=== PATIENT | female | born 1985 | race Caucasian/White ===

== ENCOUNTER 2017-05-10 11:50 | Emergency (ER) | payer MEDICAID ==
[2017-05-10] MEDS ORDERED: Ondansetron 4 MG/2 ML SDV IVPUSH ONE (12:24)
[2017-05-10] MEDS ORDERED: HYDROmorphone 1 MG/ML Syringe IV ONE ×2 (12:24→14:44)
[2017-05-10] MEDS ORDERED: Sodium Chloride 0.9% 1,000 ML IV ONE (12:24)
[2017-05-10] MEDS ORDERED: Ketorolac 30 MG/ML SDV IVPUSH ONE (12:24)
[2017-05-10] MEDS ORDERED: Tamsulosin 0.4 MG Cap.ER PO ONE (12:25)
--- NOTE | 2017-05-10 12:43 | EDM.PDOC ---
ED HPI GENERAL MEDICAL PROBLEM - General Chief Complaint: Flank Pain Stated Complaint: BACK PAIN Time Seen by Provider: 05/10/17 12:20 Source of Information: Reports: Patient History Limitations: Reports: No Limitations - History of Present Illness INITIAL COMMENTS - FREE TEXT/NARRATIVE: HISTORY AND PHYSICAL: History of present illness: [Comes to emergency room complaining of left flank pain. Patient was grocery shopping when the pain began suddenly in her left flank. Onset was 3 hours prior to arrival in the ER. Has not taken any medications for her symptoms. [place] well this morning and had no complaints or concerns. Has not noticed blood in her urine but has not urinated since the onset of pain. Pain radiates from her L low back around into her left lower quadrant. She has had no fever or chills and has otherwise been feeling well. Denies fever or chills. No chest pain, shortness of breath or difficulty breathing. Complains of nausea, but has not had any vomiting. Has had no constipation or diarrhea. No muscle or joint aches or pains.] Review of systems: As per history of present illness and below otherwise all systems reviewed and negative. Past medical history: As per history of present illness and as reviewed below otherwise noncontributory. Surgical history: As per history of present illness and as reviewed below otherwise noncontributory. Social history: No reported history of drug or alcohol abuse. Family history: As per history of present illness and as reviewed below otherwise noncontributory. Physical exam: HEENT: Atraumatic, normocephalic. Lungs: Clear to auscultation, breath sounds equal bilaterally. Heart: S1S2, regular rate and rhythm. Abdomen: Bowel sounds are normoactive throughout. Abdomen is soft and nondistended. No masses guarding or rebound. She is tender with palpation over the left lower quadrant and suprapubic area. Left CVA tenderness with percussion. Pelvis: Stable nontender. Genitourinary: Deferred. Rectal: Deferred. Extremities: Atraumatic, negative for cords or calf pain. No swelling or cyanosis to feet or lower legs. Neurovascular unremarkable. Neuro: Awake, alert, oriented. Cranial nerves II through XII unremarkable. Cerebellum unremarkable. Motor and sensory unremarkable throughout. Exam nonfocal. Diagnostics: [UA with micro, CT abdomen and pelvis without contrast] Therapeutics: [1 L normal saline, Flomax 0.4 mg by mouth, Dilaudid 1 mg IV x2, Toradol 30 mg IV, Zofran 4 mg IV] Impression: [Kidney stone] Plan: [CT abd/pelvis shows 4 mm obstructing stone to distal L ureter. Rx written for ketorolac 10 mg #20 sig one by mouth every 4-6 hours as needed for pain here refills, Zofran 4 mg #20 sig one by mouth every 8 hours as needed for nausea 0 refills, Flomax 0.4 mg #10 sig one by mouth daily 0 refills, hydrocodone 5/325 mg #30 sig 1 by mouth every 4-6 hours as needed for pain 0 refills. Recommend follow-up with urology early next week. Referrals given. She is in agreement with today's plan. All of her questions are answered and concerns are addressed. ] Definitive disposition and diagnosis as appropriate pending reevaluation and review of above. Left Flank Pain Score (Numeric/FACES): 7 - Related Data Allergies Allergy/AdvReac Type Severity Reaction Status Date / Time morphine Allergy Other Verified 12/17/15 13:33 Home Meds: Home Meds Ondansetron [Zofran ODT] 4 mg PO Q4H PRN #10 tab.dis 12/17/15 [Rx] oxyCODONE HCl/Acetaminophen [Percocet 5-325 mg Tablet] 1 each PO Q4HR PRN #20 tablet 12/17/15 [Rx] Cyclobenzaprine [Flexeril] 10 mg PO TID 05/10/17 [History] Past Medical History Gastrointestinal History: Reports: Other (See Below) Other Gastrointestinal History: Dysfunction of sphinter of RETA; Gastroparesis Genitourinary History: Reports: Renal Calculus 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: 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 Other OB/BYN History: laporoscopies - Past Surgical History GI Surgical History: Reports: Other (See Below) Social & Family History - Tobacco Use Smoking Status *Q: Current Every Day Smoker Years of Tobacco use: 10 Packs/Tins Daily: 0.5 Used Tobacco, but Quit: No Second Hand Smoke Exposure: Yes - Caffeine Use Caffeine Use: Reports: Coffee, Tea - Alcohol Use Days Per Week of Alcohol Use: 0 - Recreational Drug Use Recreational Drug Use: No Drug Use in Last 12 Months: Yes Recreational Drug Type: Reports: Marijuana/Hashish Recreational Drug Use Frequency: Daily ED ROS GENERAL - Review of Systems Review Of Systems: ROS reveals no pertinent complaints other than HPI. ED EXAM, RENAL/ - Physical Exam Exam: See Below Course - Vital Signs Last Recorded V/S: Last Vital Signs Temp 97.0 F 05/10/17 16:46 Pulse 70 05/10/17 16:46 Resp 16 05/10/17 16:46 BP 111/69 05/10/17 16:46 Pulse Ox 97 05/10/17 16:46 - Orders/Labs/Meds Labs: Laboratory Tests 05/10/17 05/10/17 Range/Units 14:05 14:05 Urine Color YELLOW Urine Appearance SLT CLOUDY Urine pH 5.5 (5.0-8.0) Ur Specific [place] 1.020 (1.001-1.035) Urine Protein 30 (NEGATIVE) mg/dL Urine Glucose (UA) NEGATIVE (NEGATIVE) mg/dL Urine Ketones 15 H (NEGATIVE) mg/dL Urine Occult Blood LARGE H (NEGATIVE) Urine Nitrite NEGATIVE (NEGATIVE) Urine Bilirubin SMALL H (NEGATIVE) Urine Ictotest NEGATIVE Urine Urobilinogen 0.2 (<2.0) EU/dL Ur Leukocyte Esterase LARGE (NEGATIVE) Urine RBC 75-89 (0-2/HPF) Urine WBC 4-6 (0-5/HPF) Ur Epithelial Cells MODERATE (NONE-FEW) Urine Bacteria 1+ H (NEGATIVE) Urine Mucus LIGHT (NONE-MOD) Urine HCG, Qual NEGATIVE (NEGATIVE) Meds: Medications Discontinued Medications Generic Name Dose Route Start Last Admin Trade Name Freq PRN Reason Stop Dose Admin Hydromorphone HCl 1 mg 05/10/17 12:24 05/10/17 12:56 Dilaudid IV 05/10/17 12:25 1 mg ONETIME ONE Administration Hydromorphone HCl 1 mg 05/10/17 14:44 05/10/17 14:45 Dilaudid IV 05/10/17 14:45 1 mg ONETIME ONE Administration Sodium Chloride 1,000 mls @ 999 mls/hr 05/10/17 12:24 05/10/17 12:48 Normal Saline IV 05/10/17 13:24 999 mls/hr STAT ONE Administration Ketorolac Tromethamine 30 mg 05/10/17 12:24 09/15/17 12:50 Toradol IVPUSH 05/10/17 12:25 30 mg ONETIME ONE Administration Ondansetron HCl 4 mg 05/10/17 12:24 05/10/17 12:48 Zofran IVPUSH 05/10/17 12:25 4 mg ONETIME ONE Administration Tamsulosin HCl 0.4 mg 05/10/17 12:25 05/10/17 12:58 Flomax PO 05/10/17 12:26 0.4 mg ONETIME ONE Administration Departure - Departure Time of Disposition: 16:30 Disposition: Home, Self-Care 01 Condition: Good Clinical Impression: Kidney stone on left side - Discharge Information Instructions: Kidney Stones, [id number] Referrals: Kodak Guzmán MD [Primary Care Provider] - Forms: ED Department Discharge Additional Instructions: The following information is given to patients seen in the emergency department who are being discharged to home. This information is to outline your options for follow-up care. We provide all patients seen in our emergency department with a follow-up referral. The need for follow-up, as well as the timing and circumstances, are variable depending upon the specifics of your emergency department visit. If you don't have a primary care physician on staff, we will provide you with a referral. We always advise you to contact your personal physician following an emergency department visit to inform them of the circumstance of the visit and for follow-up with them and/or the need for any referrals to a consulting specialist. The emergency department will also refer you to a specialist when appropriate. This referral assures that you have the opportunity for follow-up care with a specialist. All of these measure are taken in an effort to provide you with optimal care, which includes your follow-up. Under all circumstances we always encourage you to contact your private physician who remains a resource for coordinating your care. When calling for follow-up care, please make the office aware that this follow-up is from your recent emergency room visit. If for any reason you are refused follow-up, please contact the [facility] emergency department at and asked to speak to the emergency department charge nurse. [facility] - Urology [address] [place] [id number] Follow-up at the clinic listed above early next week. Take Flomax daily, Toradol every 6 hours, hydrocodone as needed for pain, Zofran as needed for pain. Take medications as prescribed. Return to ER as needed as discussed.
--- NOTE | 2017-05-10 16:15 | CT ---
CT of the abdomen and pelvis without contrast. HISTORY: Left flank pain TECHNIQUE: Axial CT images were obtained of the abdomen and pelvis without contrast. Coronal and sagi ttal reconstructions obtained. FINDINGS: The lung bases are clear, no pleural effusion. There is fatty infiltration of the liver with increased focal fatty infiltration near the falciform l igament. The spleen, adrenal glands, and pancreas appear unremarkable for noncontrast examination. Ch olecystectomy. There is no bulky retroperitoneal lymphadenopathy. No abdominal ascites. Tiny nonobstructing nephrolithiasis bilaterally. There is a 4 mm obstructing stone within the distal left ureter near the ureterovesicular junction with moderate proximal hydronephrosis. The large and small bowel are normal in caliber without evidence of obstruction. The appendix appears normal. There is no bulky pelvic lymphadenopathy. No free fluid. No free air. The urinary bladder ap pears normal. The visualized osseous structures appear normal. IMPRESSION: 1. There is a 4 mm obstructing stone within the distal left ureter with proximal hydronephrosis. 2. Punctate nonobstructing nephrolithiasis bilaterally. 3. Cholecystectomy. 4. Moderate fatty infiltration of the liver.
[2017-05-10 16:48] VITALS: BP 111/69
== END 2017-05-10 16:56 | disposition home or self-care (01) ==
LOC: MW.ED 11:50
DX: N13.2 Hydronephrosis with renal and ureteral calculous obstruction (principal); F17.210 Nicotine dependence, cigarettes, uncomplicated; Z88.5 Allergy status to narcotic agent
CPT/HCPCS: 74176; 81001; 81025; 96361; 96374; 96375; 99284; A9270; J1170; J1885; J2405; J7040; 99283

== ENCOUNTER 2020-03-31 07:54 | Day surgery (SDC) | payer BC, MEDICAID ==
[~2020-03-31 07:54] MED LIST: Bupivacaine 0.5% 30 ML SDV ONE; Dexamethasone 4 MG/ML 5 ML MDV ONE; Lidocaine 2% Jelly 30 ML Tube ONE; Midazolam 1 MG/ML 2 ML SDV ONE; Ondansetron 4 MG/2 ML SDV ONE; Propofol 200 MG/20 ML SDV ONE; Sodium Chloride 0.9% 10 ML SDV IV PRN; Sodium Chloride 0.9% 10 ML Syringe FLUSH PRN; Sodium Chloride 0.9% 2.5 ML Syringe FLUSH PRN; Sodium Chloride 0.9% 20 ML ONE; cefOXitin 1 GM Vial ONE; cefOXitin 2 GM in Premix Bag 1 BAG IV ONE; fentaNYL 100 MCG/2 ML SDV ONE
[2020-03-31] MEDS: Lactated Ringers 1,000 ML IV SCH ×2 (08:15→10:43)
[2020-03-31] MEDS ORDERED: Propofol 200 MG/20 ML SDV ONE ×2 (08:23→09:54)
--- NOTE | 2020-03-31 08:27 | PCM.PREANE ---
Preanesthetic Assessment - Anesthesia/Transfusion/Family Hx Anesthesia History: Prior Anesthesia Without Reaction Other Type of Anesthesia Reaction Comment: "wakes up angry" Family History of Anesthesia Reaction: No Transfusion History: No Prior Transfusion(s) - Review of Systems General: No Symptoms Cardiovascular: No Symptoms Neurological: No Symptoms Other: Reports: None - Physical Assessment NPO Status Date: 03/30/20 Vital Signs: Last Vital Signs Temp 96.8 F L 03/31/20 08:10 Pulse 94 03/31/20 08:10 Resp 16 03/31/20 08:10 BP 116/79 03/31/20 08:10 Pulse Ox 99 03/31/20 08:10 Height: 5 ft 8 in Weight: 103.873 kg ASA Class: 2 Mental Status: Alert & Oriented x3 Airway Class: Mallampati = 2 Dentition: Reports: Normal Dentition ROM/Head Extension: Full Lungs: Clear to Auscultation, Normal Respiratory Effort Cardiovascular: Regular Rate, Regular Rhythm - Allergies Allergies/Adverse Reactions: Allergies Allergy/AdvReac Type Severity Reaction Status Date / Time morphine Allergy Other Verified 12/17/15 13:33 - Blood Blood Available: No - Anesthesia Plan Pre-Op Medication Ordered: None - Acknowledgements Pt an Appropriate Candidate for the Planned Anesthesia: Yes Alternatives and Risks of Anesthesia Discussed w Pt/Guardian: Yes Pt/Guardian Understands and Agrees with Anesthesia Plan: Yes Additional Comments: PMH: fibromyalgia, IBS, gastroparesis, smoker, dailycannabis use- may cause propofol resistance. 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: Other OB/BYN History: laporoscopies Musculoskeletal History: Reports: Fibromyalgia Neurological History: Reports: Migraines Psychiatric History: Reports: Anxiety, Depression Endocrine/Metabolic History: Reports: Obesity/BMI 30+ Hematologic History: Reports: None Immunologic History: Reports: None Oncologic (Cancer) History: Reports: None Dermatologic History: Reports: None - Past Surgical History Head Surgeries/Procedures: Reports: None HEENT Surgical History: Reports: Adenoidectomy, Myringotomy w Tube(s), Tonsillectomy Cardiovascular Surgical History: Reports: None Respiratory Surgical History: Reports: None GI Surgical History: Reports: Cholecystectomy, Colonoscopy, Other (See Below) Other GI Surgeries/Procedures: ERCP, sphincter of Oddi dysfunction Female Surgical History: Reports: Hysterectomy, Lithotripsy/ESWL, Salpingo-Oophorectomy Endocrine Surgical History: Reports: None Neurological Surgical History: Reports: None Musculoskeletal Surgical History: Reports: None Oncologic Surgical History: Reports: None Dermatological Surgical History: Reports: None - SUBSTANCE USE Smoking Status *Q: Current Every Day Smoker Tobacco Use Within Last Twelve Months: Cigarettes Recreational Drug Type: Reports: Marijuana/Hashish - HOME MEDS Home Medications: Home Meds Ondansetron [Zofran ODT] 4 mg PO Q4H PRN #10 tab.dis 12/17/15 [Rx] Cyclobenzaprine [Flexeril] 10 mg PO TID PRN 05/10/17 [History] Calcium Carbonate [Tums] 1 tab.chew CHEW ASDIRECTED PRN 03/25/20 [History] Diclofenac Sodium [Voltaren 1% Gel] 1 applic TOP ASDIRECTED PRN 03/25/20 [History] Promethazine HCl 25 mg PO Q4H PRN 03/25/20 [History] buPROPion HCL [Wellbutrin Xl] 300 mg PO DAILY 03/25/20 [History] - CURRENT (IN HOUSE) MEDS Current Meds: Current Medications Fentanyl (Sublimaze) 50 mcg IVPUSH Q5M PRN PRN Reason: Pain (severe 7-10) Stop: 03/31/20 11:30 Lactated Ringer's (Ringers, Lactated) 1,000 mls @ 125 mls/hr IV ASDIRECTED KINDRA Sodium Chloride (Normal Saline) 10 ml IV ASDIRECTED PRN PRN Reason: IV Use Sodium Chloride (Saline Flush) 10 ml FLUSH ASDIRECTED PRN PRN Reason: Keep Vein Open Sodium Chloride (Saline Flush) 2.5 ml FLUSH ASDIRECTED PRN PRN Reason: Keep Vein Open Discontinued Medications Bupivacaine HCl (Marcaine 0.5%) Confirm Administered Dose 30 ml .ROUTE .STK-MED ONE Stop: 03/31/20 07:44 Cefoxitin Sodium (Mefoxin) Confirm Administered Dose 2 gm .ROUTE .STK-MED ONE Stop: 03/31/20 07:09 Dexamethasone (Dexamethasone) Confirm Administered Dose 20 mg .ROUTE .STK-MED ONE Stop: 03/31/20 07:14 Fentanyl (Sublimaze) Confirm Administered Dose 100 mcg .ROUTE .STK-MED ONE Stop: 03/31/20 07:01 Cefoxitin Sodium 2 gm/ Premix 50 mls @ 100 mls/hr IV ONETIME ONE Stop: 03/28/20 11:46 Sodium Chloride (Normal Saline) Confirm Administered Dose 20 mls @ as directed .ROUTE .STK-MED ONE Stop: 03/31/20 07:09 Sodium Chloride (Normal Saline) Confirm Administered Dose 20 mls @ as directed .ROUTE .ST-MED ONE Stop: 03/31/20 07:13 Lidocaine HCl (Xylocaine-Mpf 1%) Confirm Administered Dose 5 ml .ROUTE .STK-MED ONE Stop: 03/31/20 07:16 Lidocaine HCl (Xylocaine 2% Jelly) Confirm Administered Dose 30 ml .ROUTE .STK-MED ONE Stop: 03/31/20 07:44 Midazolam HCl (Versed 1 Mg/Ml) Confirm Administered Dose 2 mg .ROUTE .STK-MED ONE Stop: 03/31/20 07:02 Ondansetron HCl (Zofran) Confirm Administered Dose 4 mg .ROUTE .STK-MED ONE Stop: 03/31/20 07:14 Propofol (Diprivan 20 Ml) Confirm Administered Dose 200 mg .ROUTE .STK-MED ONE Stop: 03/31/20 07:01
[2020-03-31] MEDS ORDERED: Midazolam 1 MG/ML 2 ML SDV ONE ×2 (09:29→10:07)
[2020-03-31] MEDS ORDERED: fentaNYL 100 MCG/2 ML SDV ONE (10:07)
[2020-03-31] MEDS: fentaNYL 100 MCG/2 ML SDV IVPUSH PRN ×4 (10:35→11:00)
[2020-03-31] MEDS ORDERED: Acetaminophen 1,000 MG in Premix Bag 1 BAG IV ONE (10:52)
--- NOTE | 2020-03-31 10:57 | PCM.OPNOTE ---
- General Post-Op/Procedure Note Date of Surgery/Procedure: 03/31/20 Operative Procedure(s): Hemorrhoidectomy Findings: Excision posterior left and right hemorrhoidal columns Pre Op Diagnosis: Grade IV hemorrhoids Post-Op Diagnosis: same Anesthesia Technique: Local, MAC Primary Surgeon: Leyla Ledezma Fluid Replacement, Intraop: 800 EBL in mLs: 5 Condition: Good
--- NOTE | 2020-03-31 11:07 | PCM.POSTAN ---
POST ANESTHESIA ASSESSMENT - MENTAL STATUS Mental Status: Alert, Oriented - VITAL SIGNS Vital Signs: Last Vital Signs Temp 96.8 F L 03/31/20 10:11 Pulse 77 03/31/20 11:01 Resp 15 03/31/20 11:01 BP 95/58 L 03/31/20 11:01 Pulse Ox 94 L 03/31/20 11:01 - RESPIRATORY Respiratory Status: Respiratory Rate WNL, Airway Patent, O2 Saturation Stable - CARDIOVASCULAR CV Status: Pulse Rate WNL, Blood Pressure Stable - GASTROINTESTINAL GI Status: No Symptoms - PAIN Pain Score: 0 - POST OP HYDRATION Hydration Status: Adequate & Stable
[2020-03-31] MEDS ORDERED: oxyCODONE 5 MG Tab PO ONE (12:21)
--- NOTE | 2020-03-31 12:29 | PCM48HPAN ---
Post Anesthesia Note - EVALUATION WITHIN 48HRS OF ANESTHETIC Vital Signs in Normal Range: Yes Patient Participated in Evaluation: Yes Respiratory Function Stable: Yes Airway Patent: Yes Cardiovascular Function Stable: Yes Hydration Status Stable: Yes Pain Control Satisfactory: Yes Nausea and Vomiting Control Satisfactory: Yes Mental Status Recovered: Yes Vital Signs: Last Vital Signs Temp 96.8 F L 03/31/20 10:11 Pulse 78 03/31/20 11:07 Resp 18 03/31/20 11:07 BP 99/64 03/31/20 11:07 Pulse Ox 96 03/31/20 11:07
[2020-03-31 13:35] VITALS: BP 91/54; PULSE 75
--- NOTE | 2020-04-01 17:59 | OR ---
SURGEON: LEYLA LEDEZMA MD DATE OF PROCEDURE: 03/31/2020 PREOPERATIVE DIAGNOSIS: Grade 3 hemorrhoids. POSTOPERATIVE DIAGNOSIS: Grade 4 hemorrhoids. PROCEDURE PERFORMED: Left posterior and right posterior hemorrhoidectomy. PRIMARY SURGEON: Leyla Ledezma MD ANESTHESIA: MAC, local. FLUIDS: See Anesthesia record. ESTIMATED BLOOD LOSS: 5 mL. FINDINGS: Grade 4 prolapsed right posterior and left posterior hemorrhoidal columns. COMPLICATIONS: None. INDICATIONS: The patient is a 35-year-old female with a history of irritable bowel syndrome. She is now well controlled and has a good bowel regimen, but despite this has symptomatic hemorrhoids. I explained the need for a hemorrhoidectomy. I explained the procedure, expected perioperative course, and risks. She verbalized understanding and wishes to proceed. PROCEDURE IN DETAIL: The patient was brought into the OR and placed on the OR cart in a left lateral decubitus position. A time-out was completed verifying the patient's name, age, date of , allergies, and procedure to be performed. Monitored anesthesia care was induced and continuous oxygen was provided via nasal cannula throughout the procedure. The buttocks and anoderm were prepped and draped in usual standard fashion. I started the case by performing a digital rectal exam. With the patient sedated, she clearly had grade 4 prolapsing hemorrhoid along the right posterior and left posterior anal canal. The anoderm was circumferentially anesthetized with 0.5% Marcaine plain. A bivalve proctoscope was inserted in the anal canal. I started by excising the left lateral hemorrhoidal column. It was grasped with a Milagros clamp and elevated. Using needle-tip cautery, I excised the hemorrhoidal column starting from distal to proximal. The mucosal defect was then closed with a 2-0 chromic suture. Along the anal canal mucosa, I performed a running locking stitch, which was then converted to a simple stitch on the anoderm. This stitch was then sewn back upon itself and tied internally. The suture line was hemostatic and so I then turned my attention to the right posterior hemorrhoidal column. Again, this was grasped with a Milagros clamp and excised using directed needle-tip cautery. The mucosal defect was closed in similar fashion. The both suture lines were inspected at the end of the case and both were hemostatic. The bivalve proctoscope was removed. 4 x 4 fluffs and mesh underwear were placed on the patient. She was taken to the PACU in stable condition. All counts were complete and correct at the end of the case. ALLISON LOZA /[id number]
== END 2020-03-31 12:40 | disposition home or self-care (01) ==
LOC: MW.SDS 07:54
PROVIDERS: ATTEND Surgery
DX: K64.3 Fourth degree hemorrhoids (principal); K21.9 Gastro-esophageal reflux disease without esophagitis; E66.9 Obesity, unspecified; F41.9 Anxiety disorder, unspecified; F32.9 Major depressive disorder, single episode, unspecified; F17.210 Nicotine dependence, cigarettes, uncomplicated; M79.7 Fibromyalgia; Z79.899 Other long term (current) drug therapy; Z88.5 Allergy status to narcotic agent; Z87.19 Personal history of other diseases of the digestive system; Z68.34 Body mass index [BMI] 34.0-34.9, adult; Z82.49 Family history of ischemic heart disease and other diseases of the circulatory system
CPT/HCPCS: 46260; A9270; J0131; J0694; J1100; J2001; J2250; J2405; J2704; J3010; J3490; J7120; 00902; 88304

== ENCOUNTER 2023-01-04 11:02 | Emergency (ER) | payer BC ==
[2023-01-04 11:19] VITALS: PULSE 86
[2023-01-04] MEDS ORDERED: LORazepam 1 MG Tab PO ONE (11:30)
[2023-01-04 11:52] VITALS: BP 151/108
== END 2023-01-04 11:51 | disposition home or self-care (01) ==
LOC: MW.ED 11:02
DX: F41.9 Anxiety disorder, unspecified (principal); F32.A Depression, unspecified; E66.9 Obesity, unspecified; Z68.32 Body mass index [BMI] 32.0-32.9, adult; Z88.5 Allergy status to narcotic agent
CPT/HCPCS: 99283; A9270

== ENCOUNTER 2023-09-23 16:34 | Emergency (ER) | payer BC ==
[2023-09-23] MEDS ORDERED: Acetaminophen/oxyCODONE 325-5 MG Tab PO ONE (17:28)
[2023-09-23 17:29] VITALS: PULSE 94
[2023-09-23 18:40] VITALS: BP 136/84
== END 2023-09-23 18:33 | disposition home or self-care (01) ==
LOC: MW.ED 16:34
DX: M25.561 Pain in right knee (principal); K21.9 Gastro-esophageal reflux disease without esophagitis; E66.9 Obesity, unspecified; Z79.899 Other long term (current) drug therapy; Z88.5 Allergy status to narcotic agent; Z90.710 Acquired absence of both cervix and uterus
CPT/HCPCS: 73562; 99283; A9270

== ENCOUNTER 2024-06-19 07:40 | Emergency (ER) | payer BC ==
[2024-06-19] MEDS ORDERED: Sodium Chloride 0.9% 10 ML Syringe FLUSH PRN (08:07)
[2024-06-19] MEDS ORDERED: Sodium Chloride 0.9% 2.5 ML Syringe FLUSH PRN (08:07)
[2024-06-19] MEDS: Sodium Chloride 0.9% 500 ML IV SCH (08:22)
[2024-06-19 08:28] LABS: BASOPHILS ABSOLUTE AUTO 0.07 K/uL (0.00-0.20); EOSINOPHILS ABSOLUTE AUTO 0.27 K/uL (0.00-0.45); EOSINOPHILS PERCENT AUTO 3.7 % (0.0-6.0); HEMATOCRIT 40.9 % (37.0-47.0); HEMOGLOBIN 13.9 g/dL (12.0-16.0); IMMATURE GRAN ABSOLUTE AUTO 0.04 K/uL (0.00-0.05); IMMATURE GRAN PERCENT AUTO 0.5 % (0.0-0.4); LYMPHOCYTES ABSOLUTE AUTO 2.96 K/uL (1.00-4.80); LYMPHOCYTES PERCENT AUTO 40.6 % (24.0-44.0); MEAN CORPUSCULAR HEMOGLOBIN 31.4 pg (28.0-32.0); MEAN CORPUSCULAR VOLUME 92.3 fL (83.0-99.0); MONOCYTES ABSOLUTE AUTO 0.49 K/uL (0.00-0.80); MONOCYTES PERCENT AUTO 6.7 % (0.0-8.0); NEUTROPHILS ABSOLUTE AUTO 3.46 K/uL (1.80-7.70); NEUTROPHILS PERCENT AUTO 47.5 % (41.0-71.0); PLATELET COUNT,PLT 259 K/uL (150-400); RED BLOOD CELL COUNT 4.43 M/uL (4.10-5.30); WHITE BLOOD CELL COUNT,WBC 7.29 K/uL (3.9-11.3)
[2024-06-19 08:41] LABS: INR 0.96 (0.86-1.11)
[2024-06-19 09:04] LABS: A/G RATIO 1.1 (0.9-1.6); ALANINE AMINOTRANSFERASE,ALT 69 IU/L (14-63); ALKALINE PHOSPHATASE 65 U/L (46-116); ASPARTATE AMNIOTRANSFERASE,AST 29 IU/L (15-37); BILIRUBIN TOTAL 0.3 mg/dL (0.2-1.0); BLOOD UREA NITROGEN,BUN 7 mg/dL (7.0-18.0); CALCIUM 9.5 mg/dL (8.5-10.1); CARBON DIOXIDE,CO2 29.8 mmol/L (21.0-32.0); CHLORIDE,CL 104 mmol/L (98-107); CREATININE 1.1 mg/dL (0.6-1.0); EST CRCL DRUG DOSING (CG) 66.11 mL/min; GLUCOSE RANDOM 100 mg/dL (74-106); POTASSIUM,K 4.1 mmol/L (3.5-5.1); PROTEIN TOTAL,TP 7.5 g/dL (6.4-8.2); SODIUM,NA 141 mmol/L (136-145)
[2024-06-19 09:07] LABS: ESTIMATED GFR 65 mL/min (>60); ETHANOL BLOOD MEDICAL < 3.0 mg/dL
[2024-06-19 10:20] LABS: AMPHETAMINES SCREEN, URINE NEGATIVE (CUTOFF=500); BARBITURATE SCREEN,URINE NEGATIVE (CUTOFF=200); BENZODIAZEPINES SCREEN,URINE NEGATIVE (CUTOFF=150); BUPRENORPHINE SCREEN,URINE NEGATIVE (CUTOFF=10); METHADONE SCREEN, URINE NEGATIVE (CUTOFF=200); METHAMPHETAMINES SCREEN, URINE NEGATIVE (CUTOFF=500); OXYCODONE SCREEN,URINE NEGATIVE (CUT0FF=100); PCP SCREEN,URINE NEGATIVE (CUTOFF=25); THC SCREEN,URINE 20 NG/ML NEGATIVE (CUTOFF=50)
[2024-06-19 10:56] VITALS: BP 132/88; PULSE 86
[2024-06-19] MEDS: Iopamidol 755 MG/ML 500 ML Multipack Bottle IVPUSH STA (10:58)
== END 2024-06-19 12:18 | disposition home or self-care (01) ==
LOC: MW.ED 07:40
DX: R07.9 Chest pain, unspecified (principal); E66.9 Obesity, unspecified; Z90.49 Acquired absence of other specified parts of digestive tract; Z90.710 Acquired absence of both cervix and uterus; Z79.899 Other long term (current) drug therapy; Z88.5 Allergy status to narcotic agent; Z68.37 Body mass index [BMI] 37.0-37.9, adult
CPT/HCPCS: 36415; 70450; 71260; 80053; 80305; 80307; 81025; 84484; 85025; 85610; 86900; 86901; 93005; 96360; 99285; J7040; Q9967

== ENCOUNTER 2024-07-14 16:31 | Emergency (ER) | payer OTHER, BC ==
[2024-07-14] MEDS: traMADol 50 MG Tab PO STA (17:32)
[2024-07-14] MEDS: Cyclobenzaprine 10 MG Tab PO STA (17:32)
[2024-07-14 19:31] VITALS: BP 141/106; PULSE 97
== END 2024-07-14 19:30 | disposition home or self-care (01) ==
LOC: MW.ED 16:31
DX: M54.6 Pain in thoracic spine (principal); F17.210 Nicotine dependence, cigarettes, uncomplicated; E66.9 Obesity, unspecified; Z88.5 Allergy status to narcotic agent; Z75.8 Other problems related to medical facilities and other health care; Z79.899 Other long term (current) drug therapy; Z68.35 Body mass index [BMI] 35.0-35.9, adult; V49.50XA Passenger injured in collision with unspecified motor vehicles in traffic accident, initial encounter; Y92.410 Unspecified street and highway as the place of occurrence of the external cause
CPT/HCPCS: 70450; 72125; 72128; 72131; 99284; A9270; 99283